=== PATIENT | male | born 1950 | race Caucasian/White ===

== ENCOUNTER 2016-06-10 07:03 | Day surgery (SDC) | payer MEDICARE, OTHER ==
--- NOTE | 2016-05-26 11:24 | HP ---
Chief Complaint - Chief Complaint Date of Service: 05/26/16 Chief Complaint: need a colonoscopy and my reflux isn't any better History of Present Illness: 65 year old male with a history of polyps removed six years ago. Presents for follow up colonoscopy. No blood in stools and no changes in bowel habits. No weight loss. No family history of colon cancers. Hx of esophageal cancer in a brother. He has chronic reflux and is a bit hoarse. Has had polyps on the vocal cords. He has had Dr Newman remove them. No recent fallow up. On PPI BID for a few years. But the reflux is the same. No dietary influences. Had an EGD many years ago but we don't have access to those records. - Patient's Past Medical History Patient History - Medical: Anxiety, Diabetes Type 2, GERD, Other Patient History - Cardiac/Respiratory: Asthma Patient History - Cancer: No Hx of Cancer Patient History - Surgical Procedures: Appendectomy, Cholecystectomy, Colonoscopy, EGD, Other - 7 hand surgeries - Family History Family History:: no untoward family reactions to anesthesia, no familial bleeding tendencies, no family history of clotting disorders, no family history of premature - Family History Brother Family History - Medical: Other Family History - Cardiac/Respiratory: Myocardial Infarction Family History - Cancer: Other - espohageal Father Family History - Medical: Glaucoma, Other Family History - Cardiac/Respiratory: Other Mother Family History - Medical: , Other Family History - Cardiac/Respiratory: No pertinent hx Sister Family History - Medical: Other Family History - Cardiac/Respiratory: No pertinent hx - Social History Living Situations: spouse Abuse History: No History of abuse Psych History: Hx of Anxiety Does anyone smoke in the home?: No Smoking Status: Never smoker Alcohol Use: heavy Drug Use: none - Immunizations Immunizations Up to Date: Yes Hx Pneumococcal Vaccination: Yes History of Influenza Vaccine: Yes Review Of Systems (GEN) - Review of Systems Generalized/Overall Review: Absent: Malaise, Fatigue, Weight loss, Weight gain EENTM: Present: Nose Congestion. Absent: Eye Pain, Tearing, Double Vision Respiratory: Absent: Cough, Shortness of Breath Cardiac: Absent: Chest Pain, Palpitations Abdominal: Absent: Nausea, Vomiting, Abdominal Pain, Constipation, Diarrhea, Bright blood from rectum Genitourinary: Absent: Burning, Itching, Urgency, Frequency Musculoskeletal: Present: Other - hand contractures. Absent: Joint Pain, Back Pain Neurological: Absent: Headache, Anxiety, Emotional Problems, Numbness, Tingling , Weakness Skin: Absent: Dryness, Rash Endocrine: Absent: Intolerance to Cold Allergies/Adverse Reactions: Allergies Allergy/AdvReac Type Severity Reaction Status Date / Time povidone-iodine Allergy Mild ITCH Verified 11/02/15 10:23 [From Betadine] soap [From Betadine] Allergy Mild ITCH Verified 11/02/15 10:23 monosodium glutamate Allergy Unknown Verified 11/02/15 10:23 aspartame AdvReac Mild HEADACHES Verified 11/02/15 10:23 Home Medications: HOME MEDICATIONS Aspirin [Aspirin Enteric Coated] 81 mg PO DAILY 10/25/15 [Last Taken Unknown] Blood Sugar Diagnostic, Drum [Accu-Chek Compact] 1 each MC BID 10/25/15 [Last Taken Unknown] Fexofenadine HCl [Magdalena Allergy] 180 mg PO DAILY 10/25/15 [Last Taken Unknown] LORazepam [Ativan] 1 mg PO TID PRN 10/25/15 [Last Taken Unknown] Pantoprazole Sodium [Protonix] 40 mg PO BID 10/25/15 [Last Taken Unknown] metFORMIN HCL [Glucophage] 1,000 mg PO BIDWM 10/25/15 [Last Taken Unknown] Exam - Exam Vital Signs: Vital Signs - Last Taken Temp 37.1 C Pulse Resp BP 145/84 05/26/16 Pulse Ox Ht 6'4" Wt 285# Constitutional: Present: Alert, Oriented x3, Cooperative, Well developed, No distress, Overweight ENT Exam: Present: hearing grossly normal Eye Exam: bilateral eye: normal inspection Neck: Present: non-tender, normal inspection, trachea midline. Absent: thyromegaly Breasts: Present: Exam deferred Respiratory: Present: lungs clear, normal breath sounds, no respiratory distress , no accessory muscle use Cardiovascular/Chest: Present: normal peripheral pulses, regular rate, rhythm, no edema, no murmur Abdomen: Present: Normal bowel sounds, soft, nontender /Rectal: Present: Exam deferred Extremity: Present: other - contractures on both hands with scarring. Absent: slow capillary refill Skin Exam: Present: normal color, warm/dry. Absent: skin rash Neurologic: Present: no motor/sensory deficits, alert, normal mood/affect Appearance: Present: appropriate appearance, appropriate insight, neat, no memory impairment, denies illness Eye contact: Present: cooperative, good eye contact, normal speech Thoughts: Present: normal thought pattern Assessment/Plan - Narrative Narrative: Discussed an EGD and colonoscopy with the patient and his . He needs both to look for any damage or chronic changes in the esophagus , symptoms despite maximal therapy. Also he needs the colonoscopy for follow up of the polyps removed 6 years ago. RBIC discussed for both procedures, including bleeding and/ or perforation. Discussed prep. He understands and agrees to proceed in late May. - Assessment/Plan (1) Diabetes Problem: Chronic Qualifiers: Diabetes mellitus type: type 2 (2) GERD (gastroesophageal reflux disease) Problem: Chronic Qualifiers: Esophagitis presence: esophagitis presence not specified Qualified Code(s) : K21.9 - Gastro-esophageal reflux disease without esophagitis (3) Colon polyps Problem: Chronic Qualifiers: Colon polyp type: unspecified Colon location: unspecified part of colon Qualified Code(s): K63.5 - Polyp of colon (4) Dupuytren contracture Problem: Chronic
[~2016-06-10 07:03] MED LIST: RINGERS SOLUTION,LACTATED 1,000 ML IV PRN
--- OUTSIDE RECORDS SUMMARY | 2016-06-10 07:08 | XMS REPORT | Continuity of Care Document ---
:1950 Author Organization [facility] ([facility]) Address [address] [place] [address] Phone [phone] Care Team Providers Name Role Phone Kyle Zhou Primary Care Provider [phone] Source Comments This disclosure is being made pursuant to the Care Everywhere program, applicable federal and state laws, and may not contain all informaitonavailable regarding this patient.[facility] ([facility]) Active Allergies and Adverse Reactions Allergen Noted Date Severity Reactions Comments Iodine 02/19/2011 Pruritus rash Current Medications Prescription Sig. Disp. Refills Start Date End Date Status LORAZEPAM PO Take 1 mg by mouth Active as needed. PANTOPRAZOLE SODIUM Take 40 mg by Active (PROTONIX PO) mouth 2 times daily. FEXOFENADINE HCL (LESTER Take 180 mg by Active PO) mouth daily. metFORMIN 500 mg tablet Take 500 mg by Active mouth 2 times daily with meals. aspirin 81 mg EC tablet Take 81 mg by Active mouth daily. Active Problems Problem Noted Date Dupuytren's contracture of left hand 03/28/2015 Dupuytren's contracture of right hand 03/28/2015 Social History Tobacco Use Types Packs/Day Years Used Date Never Smoker Smokeless Tobacco: Current User Chew Tobacco Cessation:Ready to Quit: No; Counseling Given: Yes Comments: Last Filed Vital Signs Vital Sign Reading Time Taken Blood Pressure 164/76 03/28/2015 1:56 PM SHOW HOST/HOSTESS Pulse 71 03/28/2015 1:56 PM SHOW HOST/HOSTESS Temperature 36.6 C (97.9 F) 03/28/2015 1:56 PM SHOW HOST/HOSTESS Respiratory Rate - - Height 1.935 m (6' 4.18") 03/28/2015 1:56 PM SHOW HOST/HOSTESS Weight 130.228 kg (287 lb 1.6 oz) 03/28/2015 1:56 PM SHOW HOST/HOSTESS Body Mass Index 34.78 03/28/2015 1:56 PM SHOW HOST/HOSTESS Oxygen Saturation - - Plan of Care Health Maintenance Due Date Last Done Comments HCV Screening 1950 Hepatitis B Vaccine (1 of 3 - Primary Series) 1950 Tdap Vaccine 1960 Lipid Disorder Screening 10/16/1967 Td Vaccine 10/16/1967 Colonoscopy 1999 Prostate Cancer Screening 10/16/1999 Zoster Vaccine 2009 Pneumococcal Vaccine (1 of 2 - PCV13) 2014 Influenza Vaccine: Seasonal (#1) 2015 Results from Last 3 Months Not on file
[2016-06-10] MEDS ORDERED: RINGERS SOLUTION,LACTATED 1,000 ML IV ONE ×2 (07:33→09:25)
[2016-06-10] MEDS ORDERED: RINGERS SOLUTION,LACTATED 1,000 ML IV PRN (09:38)
--- NOTE | 2016-06-10 09:39 | OR ---
Operative Report - Dictated Report Narrative: DATE: 06/10/2016 PREOPERATIVE DIAGNOSIS: Persistent GERD, history of colonic polyps, history of gastric polyps POSTOPERATIVE DIAGNOSIS: Persistent GERD, type II esophagitis, gastric polyps ( pending pathology) flat colonic polyp right colon (pending pathology) PROCEDURE: #1 ESOPHAGOGASTRODUODENOSCOPY with biopsy #2 COLONOSCOPY with snare polypectomy and tattooing SURGEON: Antwan Juárez M.D. [facility] ANESTHESIA: Farhad Pittman CRNA SEDATION INDICATIONS. This is a 65-year-old male who presents with a persistent GERD despite maximal medical therapy and a history of colonic polyps, last colonoscopy over 5 years ago with a polyp removed from the right colon.. Risk, benefits, indications and contra indications were discussed with the patient for an EGD with possible biopsy and colonoscopy with possible biopsy and/or polypectomy. The patient understood and agreed and wished to proceed. The patient tolerated the SUPREP well. Procedure: The patient was brought into the operating room theater and placed into the left lateral decubitus position. A bite block was placed and he was given sedation per JOSIAH. After adequate sedation was obtained, the [employer] video gastroscope was introduced and advanced into the pharynx. This appeared to be normal. The vocal cords were seen to be normal. Scope was advanced into the esophagus under direct visualization. The scope was advanced through the esophagus, which was otherwise unremarkable. The GE junction was noted at approximately 45 cm. the scope was advanced through the GE junction into the stomach. The stomach had a relatively normal appearance with no antritis. There were 4 gastric polyps noted. 2 were mildly inflamed. There was no obvious signs of recent or old bleeding, no signs of ulceration, and there was no obvious other abnormalities noted within the stomach body or antrum. The scope was retroflexed and the upper stomach appeared to be normal. GE junction appeared to be normal and no hiatal hernia was noted. The endoscope was then advanced through the pyloric channel into an otherwise normal second and third portions of the duodenum. Multiple pictures were taken. The scope was then withdrawn slowly. Biopsy of the antrum was taken for H. pylori. Once again the scope was retroflexed and pictures taken. 3 of the 4 polyps were biopsied, one was completely removed with the biopsy forceps. The Scope was then removed slowly through the stomach and, ultimately at the GE junction, the stomach was decompressed. The GE junction was examined closely. Pictures were taken. Biopsies were taken at the GE junction. There was type II esophagitis noted. The scope was then removed through an otherwise normal-appearing esophagus. Once the scope was removed completely, the patient remained in the left lateral decubitus position and the cart was turned for the colonoscopy. A digital rectal exam was performed. This was noted to be unremarkable. The patient was noted to have no internal or external hemorrhoids. Was a small papilloma of the anal canal posteriorly. The Olympus video colonoscope was introduced and advanced into the rectum. The rectum was normal in appearance. The scope was then advanced through the sigmoid, where no diverticular disease was noted. The scope was then advanced to the cecum using standard reduction techniques. In the right colon, a small flat polyp was noted. Scope was entered into the terminal ileum and a picture was taken. The prep appeared to be good with a Harper prep score of 8. I spent approximately 10 minutes trying to find a small flat polyp. Ultimately it was visualized again, was noted to be flat and on a fold, was approximate centimeter to 1.5 cm in width, and using the cold snare, 3 pieces were removed, there was mild oozing, and I could not visualize the polyp anymore. The pieces were suctioned and the polyp trap. Because I could not see if more needs removed, the fact that it was on a fold, I elected just a tattoo slightly distal to the polyp .The scope was withdrawn slowly as the ascending, transverse , descending, and sigmoid colon were examined in a circumferential fashion. The scope was brought back into the rectum where it was retroflexed and the lower rectum was examined. No internal hemorrhoids were noted. The air was decompressed, and the scope was then removed. Withdrawal time was 20 minutes. POSTOPERATIVE CONDITION: The patient was awakened and taken to the ambulatory surgery center in good condition. No complications were encountered. FINDINGS: Minimal esophagitis, gastric polyps, H. pylori pending, flat colon polyp right colon SPECIMEN: X2 EBL: 0 mls The findings were discussed with the patient's family. I recommend a follow-up colonoscopy in 6 months to 1 year for surveillance purposes, given the fact that it was removed in a piecemeal fashion, could not determine effective complete remove the entire polyp, and the fact that the prep was not perfect on the right side of the colon. Recommend he stay off of the aspirin for 2 weeks, continue on his PPI, and if his symptoms of reflux worsened, discuss with his PCP further workup such as an upper GI or pH monitoring. We will call in 48 hours with the biopsy results.
[2016-06-10 15:05] VITALS: BP 154/74
== END 2016-06-10 07:04 | disposition home or self-care (01) ==
LOC: AMB 07:03
PROVIDERS: ATTEND Surgery
PROC: 0DB48ZX Excision of Esophagogastric Junction, Via Natural or Artificial Opening Endoscopic, Diagnostic (ICD-10-PCS; 2016-06-10)
PROC: 0DBF8ZX Excision of Right Large Intestine, Via Natural or Artificial Opening Endoscopic, Diagnostic (ICD-10-PCS; principal; 2016-06-10 07:50)
PROC: 0DB68ZX Excision of Stomach, Via Natural or Artificial Opening Endoscopic, Diagnostic (ICD-10-PCS; 2016-06-10 07:50)
DX: Z12.11 Encounter for screening for malignant neoplasm of colon (principal); K63.5 Polyp of colon; K31.7 Polyp of stomach and duodenum; K21.0 Gastro-esophageal reflux disease with esophagitis; E11.9 Type 2 diabetes mellitus without complications; J45.909 Unspecified asthma, uncomplicated; F41.9 Anxiety disorder, unspecified; Z68.34 Body mass index [BMI] 34.0-34.9, adult

== ENCOUNTER 2017-02-06 08:49 | Day surgery (SDC) | payer MEDICARE, OTHER ==
[~2017-02-06 08:49] MED LIST changes: +RINGER'S SOLUTION,LACTATED 1,000 ML IV PRN; -RINGERS SOLUTION,LACTATED 1,000 ML IV PRN; +ceFAZolin SODIUM 1 GM VIAL IV PRN
[2017-02-06] MEDS ORDERED: RINGER'S SOLUTION,LACTATED 1,000 ML IV ONE ×2 (09:51→11:44)
--- NOTE | 2017-02-06 14:45 | OR ---
Anesthesia Procedure Note - Anesthesia Procedure Note Narrative: Vital Signs - Last Taken Temp 36.5 C 02/06/17 14:40 Pulse 66 02/06/17 14:40 Resp 18 02/06/17 14:40 BP 148/77 02/06/17 14:40 Pulse Ox 96 02/06/17 14:40 O2 Oxygen Delivery Method Room Air 02/06/17 14:42 ANESTHESIA PROCEDURE NOTE Date of procedure: 02/06/2017. Time of procedure: 10:15. Performed by: Humberto Amaro CRNA Tray Room Worker: Rebecca Lopez RN . Preprocedure diagnosis: Dupuytren's contractures 3 on right hand. Need for postoperative analgesia.. Post procedure diagnosis: Same. Procedure: Axillary nerve block. Indications: Postoperative analgesia. Findings: Patient brought to operating room #4 and placed in a supine position. Patient was sedated. Right axilla was prepped with ChloraPrep. Ultrasound machine was utilized to identify medial, radial, and ulnar nerves in the axilla. A 22-gauge 2 inch Stimuplex regional block needle was used under ultrasound guidance to inject a total of 40 mL of 0.5% Marcaine with epinephrine 1 200,000 around the nerves. Adequate spread of local anesthetic was noted. Regional block needle removed intact. EBL: Minimal. Fluids: N/A. Specimen: N/A. Post procedure condition: The patient tolerated the procedure well. No complications were noted. Thank you for this consultation Humberto Amaro CRNA
[2017-02-06 15:53] VITALS: BP 155/85
== END 2017-02-06 08:50 | disposition home or self-care (01) ==
LOC: AMB 08:49
PROVIDERS: ATTEND Orthopaedic Surgery
PROC: 3E0T3BZ Introduction of Anesthetic Agent into Peripheral Nerves and Plexi, Percutaneous Approach (ICD-10-PCS; 2017-02-06)
PROC: 0JNJ0ZZ Release Right Hand Subcutaneous Tissue and Fascia, Open Approach (ICD-10-PCS; principal; 2017-02-06 12:30)
DX: M72.0 Palmar fascial fibromatosis [Dupuytren] (principal); E11.9 Type 2 diabetes mellitus without complications; K21.9 Gastro-esophageal reflux disease without esophagitis; J45.909 Unspecified asthma, uncomplicated; F41.1 Generalized anxiety disorder; F17.200 Nicotine dependence, unspecified, uncomplicated; Z68.35 Body mass index [BMI] 35.0-35.9, adult